=== PATIENT | female | born 1990 | race Two or more races ===

== ENCOUNTER 2023-04-28 09:33 | Emergency (ER) | payer OTHER ==
[~2023-04-28] VITALS: Ht 165.1 cm; Wt 68.9 kg
[~2023-04-28 09:33] MED LIST: CATAFLAM50 MG PO; CELEBREX100 MG PO; PRILOSEC20 MG PO
[2023-04-28 12:09] LABS: HEMATOCRIT 40.1 % (36.0-45.00); HEMOGLOBIN 13.3 g/dL (12.0-15.00); MEAN CELL VOLUME 92.1 fL (80.00-100.00); MEAN CORPUSCULAR HEMOGLOBIN 30.6 pg (27.00-32.0); MEAN CORPUSCULAR HGB CONC 33.2 g/dl (32.0-36.0); PLATELET COUNT 208 K/uL (150-450); RED BLOOD COUNT 4.35 M/uL (4.00-6.00); RED CELL DISTRIBUTION WIDTH 12.5 % (11.5-14.5)
[2023-04-28 12:10] LABS: CALCIUM 8.7 mg/dL (8.5-10.1); CREATININE SERUM 0.8 mg/dL (0.55-1.02); GFR 82.61; POTASSIUM 4.17 mEq/L (3.5-5.1)
== END 2023-04-28 13:38 | disposition home or self-care (01) ==
LOC: ER 09:34
PROVIDERS: Emergency Medicine; Plastic Surgery
DX: B34.9 Viral infection, unspecified (principal); N39.0 Urinary tract infection, site not specified; Z20.822 Contact with and (suspected) exposure to COVID-19

== ENCOUNTER → 2023-09-08 | Emergency (ER) | payer OTHER ==
[~2023-09-08] VITALS: Ht 165.1 cm; Wt 67.1 kg
[2023-09-08 13:11] LABS: HEMATOCRIT 40.8 % (36.0-45.00); HEMOGLOBIN 13.9 g/dL (12.0-15.00); MEAN CELL VOLUME 92.6 fL (80.00-100.00); MEAN CORPUSCULAR HEMOGLOBIN 31.5 pg (27.00-32.0); PLATELET COUNT 291 K/uL (150-450); RED BLOOD COUNT 4.41 M/uL (4.00-6.00); RED CELL DISTRIBUTION WIDTH 12.9 % (11.5-14.5)
[2023-09-08 13:47] LABS: ALBUMIN 4.1 gm/dL (3.4-5.0); ALKALINE PHOSPHATASE 44 U/L (50-136); ALT/SGPT 19 U/L (12-78); AMYLASE 62 U/L (25-115); ANION GAP 11 (10.0-20.0); AST/SGOT 12 U/L (15-37); BILIRUBIN TOTAL 0.74 mg/dL (0.3-1.2); BLOOD UREA NITROGEN 12 mg/dL (7-18); BUN CREA RATIO 15 (7.0-25.0); CALCIUM 8.9 mg/dL (8.5-10.1); CARBON DIOXIDE 28 mEq/L (21-32); CHLORIDE 106 mmol/L (98-107); CREATININE SERUM 0.82 mg/dL (0.55-1.02); GFR 80.28; GLOBULINA 3.3 G/DL (2.4-3.5); GLUCOSE FASTING 88 mg/dL (65-100); LIPASE 28 U/L (13-75); OSMOLALITY SERUM 280 MOSM/KG (275-295); POTASSIUM 4.28 mEq/L (3.5-5.1); SODIUM 141 mmol/L (136-145); TOTAL PROTEIN 7.4 gm/dL (6.4-8.2)
[2023-09-08 13:58] LABS: HCG QUANTITATIVE < 1 mUI/mL (1-3)
== END | disposition left against medical advice (07) ==
LOC: ER 09:47
PROVIDERS: General Practice
DX: R10.9 Unspecified abdominal pain (principal); Z91.013 Allergy to seafood